=== PATIENT | male | born 2000 | race Hispanic/Latino ===

== ENCOUNTER 2022-06-24 15:38 | Outpatient (CLI) | payer BC ==
[2022-06-24 16:17] LABS: Anion Gap 14 mmol/L (10-20); BUN (Urea Nitrogen) 11 mg/dL (8.4-21.0); Calc. Creatinine Clearance 0 mL/min (70-130); Calcium 9.6 mg/dL (7.8-10.44); Carbon Dioxide 27 mmol/L (22-29); Chloride 103 mmol/L (98-107); Estimated GFR 84; Glucose 97 mg/dL (70-105); Potassium 3.8 mmol/L (3.5-5.1); Sodium 140 mmol/L (136-145)
== END 2022-06-24 15:39 | disposition home or self-care (01) ==
LOC: LABBT 15:38
PROVIDERS: ATTEND Surgery
DX: Z01.812 Encounter for preprocedural laboratory examination (principal); L05.91 Pilonidal cyst without abscess
CPT/HCPCS: 80048

== ENCOUNTER 2022-06-25 09:57 | Day surgery (SDC) | payer OTHER ==
[2022-06-24 10:47] VITALS: BMI 34.3
[2022-06-25] MEDS ORDERED: fentaNYL PF 100 MCG/2 ML SYRINGE ONE (12:00)
[2022-06-25] MEDS ORDERED: Bupivacaine HCl 0.5%/Epinephrine 1:200,000/PF 30 ml Vial ONE (12:12)
[2022-06-25] MEDS ORDERED: Midazolam HCl 2 mg/2 ml Vial ONE (12:19)
[2022-06-25] MEDS ORDERED: CEFAZOLIN 2 GM VIAL ONE (12:19)
[2022-06-25] MEDS ORDERED: Sodium Chloride 0.9% 100 ML ONE (12:19)
[2022-06-25] MEDS ORDERED: NEOSTIGMINE 3 MG/3 ML SYR 3 MG/3 ML SYRINGE ONE (12:29)
[2022-06-25] MEDS ORDERED: Glycopyrrolate 0.2 MG/ML 5 ML SYRINGE ONE (12:29)
[2022-06-25] MEDS ORDERED: PROPOFOL 200 MG/20 ML VIAL ONE (12:29)
[2022-06-25] MEDS ORDERED: Ketorolac Tromethamine 30 MG/ML VIAL ONE (12:29)
[2022-06-25] MEDS ORDERED: Ondansetron PF 4 MG/2 ML Vial ONE (12:29)
[2022-06-25] MEDS ORDERED: Dexamethasone 20 MG/5 ML VIAL ONE (12:29)
[2022-06-25] MEDS ORDERED: Rocuronium Bromide 10 MG/ML (10ML VIAL) ONE (12:29)
== END 2022-06-25 14:50 | disposition home or self-care (01) ==
LOC: SDC 09:57
PROVIDERS: ATTEND Surgery
PROC: 0JB90ZZ Excision of Buttock Subcutaneous Tissue and Fascia, Open Approach (ICD-10-PCS; principal; 2022-06-25)
DX: L05.91 Pilonidal cyst without abscess (principal); J30.81 Allergic rhinitis due to animal (cat) (dog) hair and dander; E66.9 Obesity, unspecified
CPT/HCPCS: 88304; J1100; J1885; J2250; J2405; J2704; J3490